=== PATIENT | male | born 1930 | race Caucasian/White ===

== ENCOUNTER 2018-06-18 10:30 | Day surgery (SDC) | payer MEDICARE ==
[2018-06-18] MEDS ORDERED: ROCURONIUM BROMIDE 50 MG/5 ML VIAL As Ordered (10:58)
[2018-06-18] MEDS ORDERED: LIDOCAINE 2% INJ 100 MG/5 ML SDV (FOR ANES.) As Ordered (10:58)
[2018-06-18] MEDS ORDERED: PROPOFOL 200 MG/20 ML VIAL As Ordered (10:59)
[2018-06-18] MEDS ORDERED: MIDAZOLAM INJ 2 MG/2 ML VIAL (J2250) As Ordered (10:59)
[2018-06-18] MEDS ORDERED: fentaNYL 100 MCG/2 ML INJECTION (J3010) As Ordered (10:59)
[2018-06-18] MEDS: LR 1,000 ML IV (11:55)
[2018-06-18] MEDS ORDERED: ETOMIDATE INJ 20MG/10ML VIAL As Ordered (12:34)
[2018-06-18] MEDS: CETACAINE SPRAY 5GM As Ordered (12:35)
[2018-06-18] MEDS ORDERED: ONDANSETRON 4MG/2ML VIAL (J2405) As Ordered (12:37)
[2018-06-18] MEDS ORDERED: dexameTHASONE 4 MG/ML 1ML VIAL (J1100) As Ordered (12:37)
[2018-06-18] MEDS ORDERED: GLYCOPYRROLATE INJ 0.2 MG/ML 2 ML VIAL As Ordered (12:57)
[2018-06-18] MEDS ORDERED: NEOSTIGMINE 10 MG/10 ML VIAL (J2710) As Ordered (12:57)
[2018-06-18] MEDS ORDERED: ONDANSETRON 4MG/2ML VIAL (J2405) IV (13:30)
[2018-06-18] MEDS ORDERED: fentaNYL 100 MCG/2 ML INJECTION (J3010) IV (13:30)
[2018-06-18] MEDS ORDERED: LR 1,000 ML IV (13:30)
[2018-06-18 14:59] LABS: APPEARANCE CLOUDY (CLEAR); BAL DIFF IF INDICATED? YES (NO); BAL WBC 44 CELLS/uL (0-10); COLOR RED (COLORLESS); DILUTION FACTOR 10; SOURCE LEFT UPPER LOBE; WBC BAL COUNTED 4
[2018-06-18 15:10] LABS: CC BAL DIFF EXAM CYTOCENTRIFUGE
== END 2018-06-18 15:00 | disposition home or self-care (01) ==
LOC: M SDC 10:30
DX: C34.02 Malignant neoplasm of left main bronchus (principal); I10 Essential (primary) hypertension; I25.10 Atherosclerotic heart disease of native coronary artery without angina pectoris; E78.00 Pure hypercholesterolemia, unspecified; K44.9 Diaphragmatic hernia without obstruction or gangrene; R94.31 Abnormal electrocardiogram [ECG] [EKG]; R59.0 Localized enlarged lymph nodes; R91.8 Other nonspecific abnormal finding of lung field; J34.1 Cyst and mucocele of nose and nasal sinus; R42 Dizziness and giddiness; R29.898 Other symptoms and signs involving the musculoskeletal system; M54.9 Dorsalgia, unspecified; R06.02 Shortness of breath; N40.0 Benign prostatic hyperplasia without lower urinary tract symptoms; G47.9 Sleep disorder, unspecified; Z79.899 Other long term (current) drug therapy; Z79.82 Long term (current) use of aspirin; Z87.891 Personal history of nicotine dependence; Z95.5 Presence of coronary angioplasty implant and graft
CPT/HCPCS: 31624

== ENCOUNTER → 2018-06-24 | Outpatient (CLI) | payer MEDICARE ==
[2018-06-24 13:27] LABS: HEMOGLOBIN 11.5 g/dl (13.5-17.5)
== END ==
LOC: M CARPUL 12:13
DX: C34.12 Malignant neoplasm of upper lobe, left bronchus or lung (principal)
CPT/HCPCS: 94060

== ENCOUNTER → 2018-07-08 | Outpatient (CLI) | payer MEDICARE | LOC: M PLARAD 07:28 | DX: C34.12 Malignant neoplasm of upper lobe, left bronchus or lung (principal) | CPT/HCPCS: 78815 ==